=== PATIENT | female | born 1965 | race Caucasian/White ===

== ENCOUNTER 2019-05-28 09:07 | Outpatient (CLI) | payer BC, SELFPAY ==
--- NOTE | ~2019-05-28 | MM_ITS ---
EXAMINATION: MM screening [facility] BI w carolee HISTORY: Screening mammogram TECHNIQUE: Craniocaudal and mediolateral oblique 3-D tomosynthesis images were obtained and synthetic 2-D images were generated. CAD analysis was submitted and interpreted. COMPARISON: 04/03/2018, 02/13/2017, 02/10/2016 BREAST PARENCHYMAL COMPOSITION: The breasts are heterogeneously dense, which may obscure small masses . FINDINGS: There is no evidence of suspicious mass, calcification, or architectural distortion to sugg est malignancy in either breast. There has been no suspicious interval change. IMPRESSION: 1. No mammographic evidence of malignancy. 2. Recommend routine screening mammography in one year. BI-RADS Category 1: Negative Reviewed, dictated and finalized at location A.
== END 2019-05-28 09:08 | disposition home or self-care (01) ==
LOC: ANHIMG 09:14
PROVIDERS: Visit Provider Obstetrics & Gynecology
DX: Z12.31 Encounter for screening mammogram for malignant neoplasm of breast (principal)
CPT/HCPCS: 77063; 77067

== ENCOUNTER 2020-06-12 11:01 | Outpatient (CLI) | payer BC, SELFPAY ==
--- NOTE | ~2020-06-12 | MM_ITS ---
EXAMINATION: MM screening [facility] BI w carolee HISTORY: Screening TECHNIQUE: Craniocaudal and mediolateral oblique 3-D tomosynthesis images were obtained and synthetic 2-D images were generated. CAD analysis was submitted and interpreted. COMPARISON: Comparison to multiple prior studies sequentially, with oldest reviewed study dated 01/13. BREAST PARENCHYMAL COMPOSITION: There are scattered areas of fibroglandular density. FINDINGS: There is no evidence of suspicious mass, calcification, or architectural distortion to sugg est malignancy in either breast. There has been no suspicious interval change. IMPRESSION: 1. No mammographic evidence of malignancy. 2. Recommend routine screening mammography in one year. BI-RADS Category 1: Negative Reviewed, dictated and finalized at location A.
== END 2020-06-12 11:02 | disposition home or self-care (01) ==
LOC: ANHIMG 11:22
PROVIDERS: PCP Internal Medicine; Visit Provider Obstetrics & Gynecology
DX: Z12.31 Encounter for screening mammogram for malignant neoplasm of breast (principal)
CPT/HCPCS: 77063; 77067

== ENCOUNTER 2021-06-20 15:02 | Outpatient (CLI) | payer BC, SELFPAY ==
--- NOTE | ~2021-06-20 | MM_ITS ---
EXAMINATION: MM screening [facility] w carolee HISTORY: Screening TECHNIQUE: Craniocaudal and mediolateral oblique 3-D tomosynthesis images were obtained and synthetic 2-D images were generated. CAD analysis was submitted and interpreted. COMPARISON: Comparison to multiple prior studies sequentially, with oldest reviewed study dated 01/13. BREAST PARENCHYMAL COMPOSITION: Breast composed of scattered areas of fibroglandular density FINDINGS: There is no evidence of suspicious mass, calcification, or architectural distortion to sugg est malignancy in either breast. There has been no suspicious interval change. IMPRESSION: 1. No mammographic evidence of malignancy. 2. Recommend routine screening mammography in one year. BI-RADS Category 1: Negative Reviewed, dictated and finalized at location A.
== END 2021-06-20 15:03 | disposition home or self-care (01) ==
LOC: ANHIMG 15:03
PROVIDERS: PCP Internal Medicine; Visit Provider Obstetrics & Gynecology
DX: Z12.31 Encounter for screening mammogram for malignant neoplasm of breast (principal)
CPT/HCPCS: 77063; 77067

== ENCOUNTER 2022-11-07 16:15 | Outpatient (CLI) | payer BC, SELFPAY ==
--- NOTE | ~2022-11-07 | MM_ITS ---
EXAMINATION: MM screening [facility] BI w carolee HISTORY: Screening mammogram TECHNIQUE: Craniocaudal and mediolateral oblique 3-D tomosynthesis images were obtained and synthetic 2-D images were generated. CAD analysis was submitted and interpreted. COMPARISON: 06/30/2021, 06/12/2020, 05/28/2019 bilateral screening mammogram examinations BREAST PARENCHYMAL COMPOSITION: There are scattered areas of fibroglandular density. FINDINGS: There is no evidence of suspicious mass, calcification, or architectural distortion to sugg est malignancy in either breast. There has been no suspicious interval change. IMPRESSION: 1. No mammographic evidence of malignancy. 2. Recommend routine screening mammography in one year. BI-RADS Category 1: Negative Reviewed, dictated and finalized at location A.
== END 2022-11-07 16:16 | disposition home or self-care (01) ==
PROVIDERS: PCP Internal Medicine; Visit Provider Obstetrics & Gynecology
DX: Z12.31 Encounter for screening mammogram for malignant neoplasm of breast (principal)
CPT/HCPCS: 77063; 77067

== ENCOUNTER 2023-11-21 14:58 | Outpatient (CLI) | payer BC, SELFPAY ==
--- NOTE | ~2023-11-21 | MM_ITS ---
EXAMINATION: MM screening [facility] BI w carolee HISTORY: Screening TECHNIQUE: Craniocaudal and mediolateral oblique 3-D tomosynthesis images were obtained and synthetic 2-D images were generated. CAD analysis was submitted and interpreted. COMPARISON: Comparison to multiple prior studies sequentially, with oldest reviewed study dated 03/2017. BREAST PARENCHYMAL COMPOSITION: Not dense: There are scattered areas of fibroglandular density. FINDINGS: There is a new asymmetry laterally in the left breast on CC view, middle third. The right b reast is stable without evidence for malignancy. IMPRESSION: 1. New left breast asymmetry. 2. Additional mammographic views and possible breast ultrasound are recommended. BI-RADS Category 0: Incomplete: Needs additional imaging evaluation. Reviewed, dictated and finalized at location B. IMPRESSION: 1. New left breast asymmetry. 2. Additional mammographic views and possible breast ultrasound are recommended . BI-RADS Category 0: Incomplete: Needs additional imaging evaluation.
== END 2023-11-21 14:59 | disposition home or self-care (01) ==
LOC: ANHIMG 15:00
PROVIDERS: PCP Internal Medicine; Visit Provider Obstetrics & Gynecology
DX: N64.89 Other specified disorders of breast (principal); Z12.31 Encounter for screening mammogram for malignant neoplasm of breast
CPT/HCPCS: 77063; 77067

== ENCOUNTER 2023-12-12 10:37 | Outpatient (CLI) | payer BC, SELFPAY ==
--- NOTE | ~2023-12-12 | MM_ITS ---
EXAMINATION: MM diagnostic [facility] w carolee HISTORY: Left breast asymmetry TECHNIQUE: Additional 3-D tomosynthesis images of the left breast were performed and synthetic 2-D im ages were generated. CAD analysis was submitted and interpreted. COMPARISON: 11/21/2023, 11/07/2022, 06/20/2021 BREAST PARENCHYMAL COMPOSITION:Not Dense. There are scattered areas of fibroglandular density. FINDINGS: Spot compression views demonstrate effacement of the area of asymmetry. No persistent mass lesion or distortion. No suspicious microcalcifications. IMPRESSION: No mammographic evidence for malignancy. BI-RADS Category 1: Negative Reviewed, dictated and finalized at location .
== END 2023-12-12 10:38 | disposition home or self-care (01) ==
PROVIDERS: PCP Internal Medicine; Visit Provider Obstetrics & Gynecology
DX: R92.8 Other abnormal and inconclusive findings on diagnostic imaging of breast (principal)
CPT/HCPCS: 77061; 77065; G0279

== ENCOUNTER 2024-05-22 11:07 | Outpatient (CLI) | payer BC, SELFPAY ==
--- NOTE | ~2024-05-22 | DEXA_ITS ---
Bone Density Report Name: DIMAS ANDRADE Age: 58 Sex: Female Ethnicity: White Date of : 1965 Indication: postmenopausal; screening for osteoporosis; height loss; hysterectomy; Referring Provider: CAYLA VANESSA Study: Bone densitometry was performed. Exam Date: May 22, 2024 Accession number: [id number] Bone Density: Region BMD T-score Z-score Classification AP Spine(L1-L4) 1.016 -0.3 0.9 Normal Femoral Neck (Left) 0.789 -0.5 0.6 Normal Total Hip (Left) 0.895 -0.4 0.4 Normal Femoral Neck (Right) 0.782 -0.6 0.5 Normal Total Hip (Right) 0.871 -0.6 0.2 Normal Total Hip Mean 0.883 -0.5 0.3 Normal World Health Organization criteria for BMD impression classify patients as: Normal (T-score at or above -1.0), Osteopenia (T-score between -1.0 and -2.5), or Osteoporosis (T-score at or below -2.5). 10-year Fracture Risk: FRAX not reported because: All T-scores for Spine Total, Hip Total, Femoral Neck at or above -1.0 Clinical Information Provided by Patient: Has used the following medications: HRT (i.e. estrogen/hormone therapy) Has the following medical conditions: Hysterectomy Patient maximum height was 66 Menopause Age: 42 Drinks caffeinated beverages Onset of menses at age 14 Number of children 3 Impression: The patient has normal bone mass. Discussion: BONE DENSITY IS ABOVE THE MINIMUM DESIRABLE LEVEL AT ALL SKELETAL SITES TESTED. This patient?s bone mineral density is above the minimum desirable level (T-score -1.0 or better) at all sites measured. The patient should follow a healthful lifestyle (good nutrition with adequate calcium and vitamin D, and appropriate weight-bearing exercise). Follow-Up: Consider repeating this study in 5 years or sooner if there is some new clinical indication. Reported by: COLLEEN on 05/22/2024 12:06:00 PM. Reviewed, dictated and finalized at location AJoseph OLIVERA
--- OUTSIDE RECORDS SUMMARY | 2024-05-22 11:56 | XMS_ITS | Encounter Summary ---
Author Organization [facility] Healthcare Address [address] [place] [address] Care Team Providers Care Final Assembly Inspector Name Role Phone Mercy Rascon MD Primary Care Provider [phone] Encounter Details Date Type Department Care Team (Late st Contact Info) Description 12/12/2023 Orders Only [facility] [place] Health Information Management [address] [place] [id number] Scanning, Provider Social History Tobacco Use Types Packs/Day Years Used Date Smoking Tobacco: Never Smokeless Tobacco: Never Alcohol Use Standard Drinks/Week Comments Yes 0 (1 standard drink = 0.6 oz pur e alcohol) AUDIT-C Answer Date Recorded Q1: How often do you have a drink containing alcohol? Never 11/16/2023 Q2: How many drinks containi ng alcohol do you have on a typical day when you are drinking? Patient does not drink Q3: How often do you have si x or more drinks on one occasion? 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 Gender Identity Not on file Sexual Orientation Not on file documented as of this encounter Plan of Treatment Not on file documented as of this encounter Procedures Procedure Name Priority Date/Time Associated Diagnosis Comments SCAN - RADIOLOGY/IMAGING 12/12/2023 documented in this encounter Results * SCAN - RADIOLOGY/IMAGING (12/12/2023) Anatomical Region Laterality Modality Other us Provider Scanning Final Result documented in this encounter Visit Diagnoses Not on filedocumented in this encounter Care Teams Final Assembly Inspector Relationship Specialty Start Date End Date Mercy Rascon MD [address] [place] [address] [place] [id number] PCP - General Internal Medicine 05/04/18 documented as of this encounter
--- OUTSIDE RECORDS SUMMARY | 2024-05-22 11:56 | XMS_ITS | Clinical Summary ---
Author Organization [facility] Address [address] [place] [address] Care Team Providers Care High School Tutor Name Role Phone Mercy Rascon MD Primary Care Provider [phone] Source Comments [facility],non-owned Affiliates and Associated Physician Practices is amultiple site organization consisting of ambulatory clinics and hospital sitesin [place], [place], [place] and [place]. This disclosure is being madepursuant to the Care Everywhere program and may not contain all information available regarding this patient. Last updated 17.[facility] [employer] Allergies No known active allergies Medications * Be aware that medications may not be up to date on this document. Alwaysverify current medications with the patient. Medication Sig Dispensed Refills Start Date End Date Status estradiol (ESTRACE) 1 MG tablet Take 1 tablet by mouth once daily 07/02/2017 Active bimatoprost (LATISSE) 0.03 % solution Apply 1 drop to affected area once daily 03/17/2015 Active Tretinoin (ALTRENO) 0.05 % lotion Apply to affected area once daily Apply to affected area at bedtime as directed. 3 mos supply 45 g 3 10/28/2019 Active Additional Information Patient not taking.Reported on 10/27/2021 temazepam (RESTORIL) 15 MG capsule Take 15 mg by mouth at bedtime 06/15/2020 Active Multiple Vitamin (MULTI-VITAMIN PO) Take 1 tablet by mouth once daily Active estradiol (ESTRACE) 0.1 MG/GM vaginal cream Insert 0.1 applicators into the vagina as needed 09/25/2020 Active ezetimibe (ZETIA) 10 MG tablet Take 1 tablet by mouth once daily 02/21/2021 Active pravastatin (PRAVACHOL) 40 MG tablet Take 40 mg by mouth once daily 04/27/2021 Active fluocinolone-hydroqu inone-tretinoin (Tri-Ainsley) 0.01-4-0.05 % cream Apply to affected area nightly, for 6 months. For cosmetic use 30 g 2 11/21/2021 Active Active Problems Problem Noted Date Diagnosed Date HLD (hyperlipidemia) 05/25/2015 Overview (06/21/2020): Last Assessment & Plan: Patient has myalgia with low does Crestor. She could not tolerate 20 memory g because it caused her muscle weakness. We will stop Crestor and start her on nexletol 180 mg daily and samples were given and we will repeat her blood work in few months Last Assessment & Plan: Patient has myalgia with low does Crestor. She could not tolerate 20 memory g because it caused her muscle weakness. We will stop Crestor and start her on nexletol 180 mg daily and samples were given and we will repeat her blood work in few months Insomnia 05/25/2015 Overview (06/21/2020): Last Assessment & Plan: Controlled on Restoril Last Assessment & Plan: Controlled on Restoril Immunizations Name Administration Dates Next Due Covid Moderna primary monova lent 12+ yr 0.5mL 05/04/2020,04/06/2020 FLU VACCINE QUAD IIV4 SPLIT 0.25 ML IM 8,12/01/2016,11/29/2015 FLU VACCINE TRI IIV3 SPLIT PF IM (FLUVIRIN) 11/12 INFLUENZA VACCINE 11/12/2020,12/14/2019,12/14/19 19 INFLUENZA VACCINE, CELL CULT URE, QUADR. (FLUCELVAX QUADRIVALENT; 6MO+) (CCIIV4) 11/14/2019 INFLUENZA VACCINE, QUADR. (F LUZONE; FLULAVAL; FLUARIX; AFLURIA QUADRIVALENT; 6MO+), 0.5 ML (IIV4) 01/08/2019 MMR 08/04/2018,08/02/2018 TDAP (7yrs+) 01/08/2019 Zoster Hzv Vacc Recombinant Inj Im 01/23/2020, Family History Medical History Relation Name Comments Cancer - Skin, Melanoma Neg Hx Cancer - Skin, Non Melanoma Neg Hx Social History Tobacco Use Types Packs/Day Years Used Date Smoking Tobacco: Never Smokeless Tobacco: Never Alcohol Use Standard Drinks/Week Comments Yes 0 (1 standard drink = 0.6 oz pur e alcohol) rarely Sex and Gender Information Value Date Recorded Sex Assigned at Not on file Gender Identity Not on file Sexual Orientation Not on file Plan of Treatment Health Maintenance Due Date Last Done Comments COLOGUARD (AGES 45-75) - COLON CA SCREENING [address] COLONOGRAPHY - COLON CA SCREENING 1967 FIT - COLON CA SCREENING 1967 FLEX SIG - COLON CA SCREENING 1967 MAMMOGRAM 1967 PAP SMEAR 1967 HIV SCREENING 06/22/1982 HEPATITIS C SCREENING 06/18/1985 HEPATITIS B VACCINE (1 of 3 - 19+ 3-dose series) 06/22/1986 PNEUMOCOCCAL VACCINE 50+ (1 of 1 - PCV) 06/22/2017 COVID-19 VACCINE (3 - 2023- season) 2023 05/04/2020, 04/06/2020 DEPRESSION SCREENING 02/13/2024 INFLUENZA VACCINE (Season Ended) 2024 11/12/2020, 12/14/2019, 11/14/2019, Additional history exists COLONOSCOPY - COLON CA SCREENING 01/19/2028 01/18/2018 Colorectal Cancer Screening 01/19/2028 DTAP/TDAP/TD VACCINES (2 - Td or Tdap) 01/08/2029 01/08/2019 ZOSTER VACCINE Completed 01/23/2020, 11/14/2019 HIB VACCINE Aged Out No longer eligi ble based on patient's age to complete this topic HPV VACCINE Aged Out No longer eligi ble based on patient's age to complete this topic MENINGOCOCCAL (Group B) VACCINE SHARED DECISION-MAKING Aged Out No longer eligible based on patient's age to complete this topic MENINGOCOCCAL GROUPS A/C/Y/W VACCINE Aged Out No longer eligible based on patient's age to complete this topic PNEUMOCOCCAL VACCINE Aged Out No long er eligible based on patient's age to complete this topic Care Teams High School Tutor Relationship Specialty Start Date End Date Mercy Rascon MD [address] [facility] [address] [phone] PCP - General 05/13/18
--- OUTSIDE RECORDS SUMMARY | 2024-05-22 11:56 | XMS_ITS | Encounter Summary ---
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 Gender Identity Not on file Sexual Orientation Not on file documented as of this encounter Plan of Treatment Not on file documented as of this encounter Procedures Procedure Name Priority Date/Time Associated Diagnosis Comments SCAN - RADIOLOGY/IMAGING 11/21/2023 documented in this encounter Results * SCAN - RADIOLOGY/IMAGING (11/21/2023) Anatomical Region Laterality Modality Other us Provider Scanning Final Result documented in this encounter Visit Diagnoses Not on filedocumented in this encounter Care Teams Compliance Tester Relationship Specialty Start Date End Date Mercy Rascon MD [address] [place] [address] [place] [id number] PCP - General Internal Medicine 05/04/18 documented as of this encounter
--- OUTSIDE RECORDS SUMMARY | 2024-05-22 11:56 | XMS_ITS | Encounter Summary ---
Author Organization [facility] Facility Care Team Providers Care Steward/Stewardess Deck Name Role Phone Mercy Rascon MD Primary Care Provider [phone] Encounter Details Date Type Department Care Team (Latest Contact Info) Description 01/22/2018 Orders Only [facility] Provider, MD Malou [address] [place] [phone] Social History Tobacco Use Types Packs/Day Years Used Date Smoking Tobacco: Never Assessed Comments Unknown Sex and Gender Information Value Date Recorded Sex Assigned at Not on file Legal Sex Female 5:50 PM ESTATE TAX EXAMINER Gender Identity Not on file Sexual Orientation Not on file documented as of this encounter Plan of Treatment Not on file documented as of this encounter Procedures Procedure Name Priority Date/Time Associated Diagnosis Comments COLONOSCOPY - SCAN 01/22/2018 12 :00 AM ESTATE TAX EXAMINER documented in this encounter Results * COLONOSCOPY - SCAN (01/22/2018 12:00 AM ESTATE TAX EXAMINER) Narrative 01/22/2018 12:00 AM ESTATE TAX EXAMINER Ordered by an unspecified provider. Historical Provider Final Res ult documented in this encounter Visit Diagnoses Not on filedocumented in this encounter Additional Health Concerns Infection Onset Date Last Indicated Resolved Time COVID: Suspected 02/17/2020 02/17/2020 03/02/2020 3:07 AM ESTATE TAX EXAMINER documented as of this encounter Care Teams Steward/Stewardess Deck Relationship Specialty Start Date End Date Mercy Rascon MD [address] [place] [address] PCP - General Internal Medicine 05/04/18 documented as of this encounter
--- OUTSIDE RECORDS SUMMARY | 2024-05-22 11:56 | XMS_ITS | Encounter Summary ---
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 Historical Provider Final Res ult documented in this encounter Visit Diagnoses Not on filedocumented in this encounter Additional Health Concerns Infection Onset Date Last Indicated Resolved Time COVID: Suspected 02/17/2020 02/17/2020 03/02/2020 3:07 AM WOOD HEEL FITTER MACHINE documented as of this encounter Care Teams Seasonal Greenery Bundler Relationship Specialty Start Date End Date Mercy Rascon MD [address] [place] [id number] PCP - General Internal Medicine 05/04/18 documented as of this encounter
--- OUTSIDE RECORDS SUMMARY | 2024-05-22 11:56 | XMS_ITS | Clinical Summary ---
Author Organization [facility] Address [address] [place] [address] Care Team Providers Care Construction Lineman Name Role Phone Mercy Rascon MD Primary Care Provider [phone] Allergies Active Allergy Reactions Criticality Noted Date Comments Atorvastatin Muscle pain Medium 07/05/2018 myalgia Medications estradiol (ESTRACE) 1 mg tablet Take 1 tablet (1 mg total) by mouth Take 1 tablet by mouth once daily 07/03/19 18 Active vitamin A 10,000 unit capsule 1 capsule (10,000 Units total) daily Active biotin 10 mg tablet 1 tablet (10 mg total) daily Biotin 10 MG Tablet, TAKE: 1 tablet, Once a day Active calcium carbonate/miriam min D3 (CALCIUM 500 + D ORAL) Rx: Calcium , TAKE: 1 tab Active estradioL (ESTRACE) 0.01 % (0.1 mg/gram) vaginal cream 02/21/19 23 Active bimatoprost (LATISSE) 0.03 % ophthalmic solution APPLY TO EACH EYELASH EVERY NIGHT AT BEDTIME 11/07/19 24 Active ezetimibe (ZETIA) 10 mg tablet TAKE ONE TABLET BY MOUTH EVERY DAY 90 tablet 1 03/06/19 25 Active pravastatin (PRAVACHOL) 40 mg tablet TAKE ONE TABLET BY MOUTH EVERY DAY 90 tablet 1 03/06/19 25 Active temazepam (RESTORIL) 15 mg capsuleIndicat ions:Primary insomnia TAKE 1 CAPSULE BY MOUTH TWICE DAILY NEEDED 60 capsule 2 05/15/19 25 Active bempedoic acid (Nexletol) 180 mg tablet Take 180 mg by mouth daily 90 tablet 3 05/17/19 25 Active bempedoic acid (Nexletol) 180 mg tablet Take 180 mg by mouth daily 30 tablet 5 05/17/19 25 Active pimecrolimus (ELIDEL) 1 % cream Apply to affected area on face 2 times daily. 30 05/14/19 19 025 Discontinued(Th erapy completed) bempedoic acid (Nexletol) 180 mg tablet Take 180 mg by mouth daily 30 tablet 5 02/11/20 20 025 Discontinued(Re order) temazepam (RESTORIL) 15 mg capsuleIndicat ions:Primary insomnia TAKE 1 CAPSULE BY MOUTH TWICE DAILY NEEDED 60 capsule 3 01/15/20 24 025 Discontinued Active Problems Problem Noted Date Diagnosed Date Myalgia 05/16/2024 Assessment & Plan (05/16/2024 12:12 PM CDT): Patient with muscle ache and slight weakness in the lower extremities secondary to pravastatin which makes it difficult for her to ambulate and exercise on regular basis. We will stop pravastatin and try Nexletol. Common cold 11/16/2023 Assessment & Plan (11/16/2023 11:43 AM CDT): Patient with coughing and sore throat. Exam is normal. Most likely it is viral. She will take hbjr-jsl-gzlsfab cough medications as needed and she will call for worsening symptoms Onychomycosis 09/29/2021 Assessment & Plan (04/04/2023 7:52 AM MAILER APPRENTICE): Resolved Assessment & Plan (04/03/2022 12:41 PM MAILER APPRENTICE): Resolved Assessment & Plan (09/29/2021 5:07 PM CDT): Patient with fungus infection of both great toenails. She will be started on Lamisil 250 mg daily for 4-6 months. Mixed hyperlipidemia 05/25/2015 Assessment & Plan (05/16/2024 12:11 PM CDT): LDL is 130. The patient complains of muscle ache with pravastatin and she likes to try a different medication. We will start her on Nexletol 180 mg daily and continue Zetia 10 mg daily. She exercises on regular basis and she watches her diet very closely Assessment & Plan (11/16/2023 7:50 AM CDT): Controlled on current medications. Continue low-fat diet. Will continue to monitor . Assessment & Plan (04/04/2023 7:52 AM MAILER APPRENTICE): Controlled on current medications. Continue low-fat diet. Will continue to monitor . Assessment & Plan (10/02/2022 12:13 PM CDT): Controlled on current medications. Continue low-fat diet. Will continue to monitor . Assessment & Plan (04/03/2022 7:52 AM MAILER APPRENTICE): Controlled on current medications. Continue low-fat diet. Will continue to monitor . Assessment & Plan (09/29/2021 5:06 PM CDT): Controlled on current medications. Continue low-fat diet. Will continue to monitor . Assessment & Plan (02/18/2021 11:44 AM MAILER APPRENTICE): Continue current medications and she was advised to had fish oil 1 g daily Assessment & Plan (08/05/2020 11:52 AM CDT): Lipid profile is not controlled. She watches her diet and exercises on a daily basis. Will stop please call and try pravastatin 40 mg q.h.s. and add Zetia 10 mg daily. The patient will call if she developed muscle ache or weakness. Will repeat the blood work in few months. Assessment & Plan (01/29/2020 4:31 PM MAILER APPRENTICE): Patient has myalgia with low does Crestor. She could not tolerate 20 memory g because it caused her muscle weakness. We will stop Crestor and start her on nexletol 180 mg daily and samples were given and we will repeat her blood work in few months Assessment & Plan (07/30/2019 4:04 PM CDT): The patient has persistent hyperlipidemia. She watches her diet very closely and she exercises on regular basis. Crestor gives her muscle ache. We will stop Crestor and try Livalo 2 mg q.h.s.. She will continue with diet and exercise and will repeat the blood work in few months Assessment & Plan (01/08/2019 11:46 AM MAILER APPRENTICE): Controlled on current medications. Continue low-fat diet. Will continue to monitor . Assessment & Plan (07/05/2018 10:28 AM CDT): Controlled on current medications. Continue low-fat diet. Will continue to monitor . Primary insomnia 05/25/2015 Assessment & Plan (05/16/2024 12:11 PM CDT): Controlled on temazepam Assessment & Plan (11/16/2023 7:50 AM CDT): Controlled on temazepam Assessment & Plan (04/04/2023 7:52 AM MAILER APPRENTICE): Controlled on temazepam Assessment & Plan (10/02/2022 12:14 PM CDT): Controlled on temazepam Assessment & Plan (04/03/2022 7:52 AM MAILER APPRENTICE): Controlled on temazepam Assessment & Plan (09/29/2021 5:06 PM CDT): Controlled on temazepam Assessment & Plan (02/18/2021 11:44 AM MAILER APPRENTICE): Controlled on temazepam Assessment & Plan (08/05/2020 11:52 AM CDT): Controlled on temazepam Assessment & Plan (01/29/2020 2:41 PM MAILER APPRENTICE): Controlled on Restoril Assessment & Plan (07/30/2019 4:04 PM CDT): Controlled on temazepam Assessment & Plan (01/08/2019 11:46 AM MAILER APPRENTICE): Controlled on temazepam p.r.n. Assessment & Plan (07/05/2018 10:29 AM CDT): Controlled on Restoril Encounters Date Type Department Care Team Description 05/16/2024 11:15 AM CDT Office Visit [facility] Internal Medicine [address] [place] [phone] Mercy Rascon MD Mixed hyperlipidemia (Primary Dx); Primary insomnia; Adult BMI <19 kg/sq m; Myalgia from Last 3 Months Immunizations Immunization Administration Dates Next Due Influenza, Quadrivalent, Mira l Culture-based MDCK, Preservative Free, Antibiotic Free, Intramuscular 11/03/2022,11/19/2021,11/14/2019 Influenza, Quadrivalent, Spl it, Intramuscular 11/23/2017,12/01/2016,11/29/2015 Influenza, Quadrivalent, Spl it, Preservative Free, Intramuscular 01/08/2019 Influenza, Trivalent, Cell C ulture-based MDCK, Preservative Free, Antibiotic Free, Intramuscular 11/03/2023 Influenza, Trivalent, Preser vative Free, Intramuscular 11/26/2014 Influenza, Unspecified 11/12/2020,12/14/2019,02/2018 MMR 08/04/2018,08/02/2018 Moderna SARS-CoV-2 Monovalen t Vaccination (12+ YRS) 05/04/2020,04/06/2020 Tdap 01/08/2019 ZOSTER Recombinant 01/23/2020,11/14/2019 Surgical History Surgery Date Site/Laterality Comments MASS EXCISION LFT SMALL FINGER MASS Medical History Medical History Date Comments HLD (hyperlipidemia) Insomnia Family History Medical History Relation Name Comments Diabetes Father Relation Name Status Comments Father Alive Mother Alive Social History Tobacco Use Types Packs/Day Years Used Date Smoking Tobacco: Never Smokeless Tobacco: Never Alcohol Use Standard Drinks/Week Comments Yes 0 (1 standard drink = 0.6 oz pur e alcohol) AUDIT-C Answer Date Recorded Q1: How often do you have a drink containing alcohol? Never 05/16/2024 Q2: How many drinks containi ng alcohol do you have on a typical day when you are drinking? Patient does not drink Q3: How often do you have si x or more drinks on one occasion? Never 05/16/2024 PHQ-2 Answer Date Recorded PHQ-2 Total Score (If total score is 3 or more points, staff should administer the PHQ-9) 0 11/16/2023 Comments Unknown Sex and Gender Information Value Date Recorded Sex Assigned at Not on file Legal Sex Female 5:50 PM MAILER APPRENTICE Gender Identity Not on file Sexual Orientation Not on file Obstetrics History Last Filed Vital Signs Vital Sign Reading Time Taken Comments Blood Pressure 112/70 05/16/2024 11:16 AM CDT Pulse 70 05/16/2024 11:16 AM CDT Temperature 36.6 C (97.9 F) 05/16/2024 11:16 AM CDT Respiratory Rate 18 05/16/2024 11:16 AM CDT Oxygen Saturation 99% 05/16/2024 11:16 AM CDT Inhaled Oxygen Concentration - - Weight 55.8 kg (123 lb) 05/16/2024 11:16 AM CDT Height 167.6 cm (5' 6 ) 05/16/2024 11:16 AM CDT Body Mass Index 19.85 05/16/2024 11:16 AM CDT Plan of Treatment Health Maintenance Due Date Last Done Comments Hepatitis B Screening 06/22/1985 Regular Well Visit/Exam 18-64 06/22/1985 Cervical Cancer Screening 04/07/2020 04/07/2019 Breast Cancer Screening-Mammogram 06/20/2022 06/20/2021, 06/12/2020, 02/12/2018, Additional history exists Colon Cancer Screening-Colonoscopy 01/18/2023 01/18/2018 Depression Screening 11/15/2024 11/16/2023, 04/04/2023, 10/02/2022, Additional history exists DTaP/Tdap/Td Vaccine (2 - Td or Tdap) 01/08/2029 01/08/2019 Colon Cancer Screening-CT Colonography Discontinued 01/18/2018 Colon Cancer Screening-DNA Stool Discontinued 01/18/2018 Colon Cancer Screening-FIT Discontinued 01/18/2018 Colon Cancer Screening-Sigmoidoscopy Discontinued 01/18/2018 Zoster Vaccine Completed 01/23/2020, 11/14/2019 Covid-19 Vaccine Completed 11/03/2023, , 11/19/2021, Additional history exists Influenza Vaccine Completed 11/03/2023, , 11/19/2021, Additional history exists Hepatitis C Screening Completed 05/09/2024 Pneumococcal vaccine <65 Aged Out No longer eligible based on patient's age to complete this topic Procedures Procedure Name Priority Date/Time Associated Diagnosis Comments CBC WITH AUTO DIFFERENTIAL Routine 05/09/2024 9:10 AM CDT Mixed hyperlipidemia COMPREHENSIVE METABOLIC PANEL Routine 05/09/2024 9:10 AM CDT Mixed hyperlipidemia LIPID PANEL Routine 05/09/2024 9:10 AM CDT Mixed hyperlipidemia HEPATITIS C ANTIBODY Routine 05/09/2024 9:10 AM CDT SCREENING MAMMOGRAM Schedule Routine, Read Routine (OP Routine) 06/20/2021 GENITAL FLUID PAP SMEAR, THIN PREP AND HPV Routine 04/07/2019 COLONOSCOPY Routine 01/18/2018 from Last 3 Months or Most Recently Relevant to Health Maintenance Results * CBC with auto differential (05/09/2024 9:10 AM CDT) WBC 4.3 3.8 - 10.8 Thousand/u L [facility] RBC, POC 4.22 3.80 - 5.10 Million/uL [facility] Hgb 13.8 11.7 - 15.5 g/dL [facility] Hct 41.5 35.0 - 45.0 % [facility] MCV 98.3 80.0 - 100.0 fL [facility] MCH 32.7 27.0 - 33.0 pg [facility] MCHC 33.3 32.0 - 36.0 g/dL [facility] Comment: For adults, a slight decrease in the calculated MCHC value (in the range of 30 to 32 g/dL) is most likely not clinically significant; however, it should be interpreted with caution in correlation with other red cell parameters and the patient's clinical condition. Rdw 11.6 11.0 - 15.0 % [facility] Platelets 218 140 - 400 Thousand/u L [facility] MPV 9.8 7.5 - 12.5 fL [facility] Neutrophils, abs 1,875 1,500 - 7,800 cells/uL [facility] Lymphocytes, abs 1,866 850 - 3,900 cells/uL [facility] Monocyte abs 430 200 - 950 cells/uL [facility] Eosinophils, abs 90 15 - 500 cells/uL [facility] Basophils, abs 39 0 - 200 cells/uL [facility] Neutrophils 43.6 % [facility] Lymphocyte pct 43.4 % [facility] Monocytes 10.0 % [facility] Eosinophils 2.1 % [facility] Basophils 0.9 % [facility] Blood 05/09/2024 9:10 AM CDT 05/09/2024 9:11 AM CDT Narrative [facility] - 05/10/2024 5:41 AM CDT FASTING:YES FASTING: YES Mercy Rascon MD LAB BLOOD ORDERABLES Final Result [facility] [address] [place] [address] * Hepatitis C antibody (05/09/2024 9:10 AM CDT) Hep C Ab NON-REACTI VE NON-REACT VERONIKA [facility] Comment: HCV antibody was non-reactive. There is no laboratory evidence of HCV infection. In most cases, no further action is required. However, if recent HCV exposure is suspected, a test for HCV RNA (test code 29564) is suggested. For additional information please refer to http://education.[employer]/faq/SIS45d3 (This link is being provided for informational/ educational purposes only.) 05/09/2024 9:10 AM CDT 05/09/2024 9:11 AM CDT Narrative [facility] - 05/10/2024 5:41 AM CDT FASTING:YES FASTING: YES Mercy Rascon MD LAB MICROBIOLOGY - GENERAL ORDERABLES Final Result Performing Organization Address City/[facility]/ZIP Co de Phone Number [facility] [address] [phone] * (ABNORMAL) Lipid panel (05/09/2024 9:10 AM CDT) [facility] Cholesterol 220(H) <200 mg/dL [facility] HDL 72 > OR = 50 mg/dL [facility] Triglycerides 79 <150 mg/dL [facility] LDL 130(H) mg/dL (calc) [facility] Comment: Reference range: <100 Desirable range <100 mg/dL for primary prevention; <70 mg/dL for patients with CHD or diabetic patients with > or = 2 CHD risk factors. LDL-C is now calculated using the Antione-Severino calculation, which is a validated novel method providing better accuracy than the Friedewald equation in the estimation of LDL-C. Antione SS et al. PAULA. 2013;310(19): 3274-0268 (http://education.[employer]/faq/MFY209) Chol/HDL ratio 3.1 <5.0 (calc) [facility] Non-HDL, (LDL+VLDL) 148(H) <130 mg/dL (calc) [facility] Comment: For patients with diabetes plus 1 major ASCVD risk factor, treating to a non-HDL-C goal of <100 mg/dL (LDL-C of <70 mg/dL) is considered a therapeutic option. Blood 05/09/2024 9:10 AM CDT 05/09/2024 9:11 AM CDT Narrative [facility] - 05/10/2024 5:41 AM CDT FASTING:YES FASTING: YES Mercy Rascon MD LAB BLOOD ORDERABLES Final Result [facility] [address] [place] [phone] * Comprehensive metabolic panel (05/09/2024 9:10 AM CDT) Glucose 89 65 - 99 mg/dL [facility] Comment: Fasting reference interval BUN 17 7 - 25 mg/dL [facility] Creatinine 0.69 0.50 - 1.03 mg/dL [facility] eGFR 102 > OR = 60 mL/min/1.7 3m2 [facility] BUN/creat ratio SEE NOTE: 6 - 22 (calc) [facility] Comment: Not Reported: BUN and Creatinine are within reference range. Sodium 139 135 - 146 mmol/L [facility] Potassium, pl 4.2 3.5 - 5.3 mmol/L [facility] Chloride 104 98 - 110 mmol/L [facility] CO2 27 20 - 32 mmol/L [facility] Calcium 9.3 8.6 - 10.4 mg/dL [facility] Protein, sr 7.2 6.1 - 8.1 g/dL [facility] Albumin 4.6 3.6 - 5.1 g/dL [facility] GLOBULIN 2.6 1.9 - 3.7 g/dL (calc) [facility] Alb/glob ratio 1.8 1.0 - 2.5 (calc) [facility] Bilirubin, total 0.6 0.2 - 1.2 mg/dL [facility] Alk phos 58 37 - 153 U/L [facility] AST 25 10 - 35 U/L [facility] ALT (SGPT) 14 6 - 29 U/L [facility] Blood 05/09/2024 9:10 AM CDT 05/09/2024 9:11 AM CDT Narrative [facility] - 05/10/2024 5:41 AM CDT FASTING:YES FASTING: YES us Mercy Rascon MD LAB BLOOD ORDERABLES Final Result [facility] [address] [phone] * Screening Mammogram (06/20/2021) Anatomical Region Laterality Modality Breast N/A Mammography Narrative 06/20/2021 Repeat in one year, No mammographic evidence of malignancy Historical Provider IMG MAMMO PROCEDURES Kaelyn l Result * Genital fluid pap smear, thin prep and HPV (04/07/2019) 04/07/2019 Historical Provider LAB CYTOLOGY ORDERABLES F inal Result * Colonoscopy (01/18/2018) Anatomical Region Laterality Modality Other Historical Provider ENDOSCOPY PROCEDURES Kaelyn l Result from Last 3 Months or Most Recently Relevant to Health Maintenance Insurance [employer] [place] [address] FORMERLY [facility] ACCESS CHOICE Care Teams Construction Lineman Relationship Specialty Start Date End Date Mercy Rascon MD [address] [facility] [address] [address] PCP - General Internal Medicine 05/04/18
--- OUTSIDE RECORDS SUMMARY | 2024-05-22 11:56 | XMS_ITS | Continuity of Care Document ---
Author Organization [facility] Address [address] [facility] [address] [facility] [address] [place] [address] Phone Care Team Providers Care Auto Driver Name Role Phone Vitale OD, Humberto Unavailable Unavailable Advance Directives Directive Yes / No Effective Date File Name No Information Encounters Encounter Description Practice Location Reason(s) For Visit Diagnoses Date Provider Providers Copied on Encounter [facility], [address], [place], [place], [id number], [place] tel:[phone] [facility] No Information 8-200 5 Vitale OD Humberto. [address] , [address], [place], [address], [place]. tel:[phone] Family History Family Member Type Diagnosis Age At Onset No Information Payers Payer name Insurance type Covered republican ID Authoriza tion(s) No Information Social History Type Description Quantity Date Captured Comments Sex Female Smoking Status No Information Chief Complaint And Reason For Visit No Information Reason For Referral Reason For Referral No Information History Of Present Illness Encounter Date Complaint History Of Prese nt Illness No Information Functional Status Date Functional Assessmen t No Information Instructions Date Instruction Additional Infor mation No Information Assessments Type Assessment Date No Information Patient Care Teams Name Effective Dates (start - stop) Status Members No Information
--- OUTSIDE RECORDS SUMMARY | 2024-05-22 11:56 | XMS_ITS | Encounter Summary ---
Author Organization [facility] Care Team Providers Care Kitchen Porter Name Role Phone Mercy Rascon MD Primary Care Provider [phone] Encounter Details Date Type Department Care Team (Latest Contact Info) Description 12/26/2016 Orders Only [facility] CLINCONV ProviderMalou MD [address] [place] [id number] Social History Tobacco Use Types Packs/Day Years Used Date Smoking Tobacco: Never Assessed Comments Unknown Sex and Gender Information Value Date Recorded Sex Assigned at Not on file Legal Sex Female 5:50 PM WIRE LATHER Gender Identity Not on file Sexual Orientation Not on file documented as of this encounter Plan of Treatment Not on file documented as of this encounter Procedures Procedure Name Priority Date/Time Associated Diagnosis Comments PROCEDURE - RESULT 12/26/2016 12 :00 AM WIRE LATHER SCAN - PATHOLOGY 12/26/2016 12:0 0 AM WIRE LATHER documented in this encounter Results * PROCEDURE - RESULT (12/26/2016 12:00 AM WIRE LATHER) Narrative 12/26/2016 12:00 AM WIRE LATHER Ordered by an unspecified provider. Historical Provider Final Res ult * SCAN - PATHOLOGY (12/26/2016 12:00 AM WIRE LATHER) Narrative 12/26/2016 12:00 AM WIRE LATHER Ordered by an unspecified provider. Historical Provider Final Res ult documented in this encounter Visit Diagnoses Not on filedocumented in this encounter Additional Health Concerns Infection Onset Date Last Indicated Resolved Time COVID: Suspected 02/17/2020 02/17/2020 03/02/2020 3:07 AM WIRE LATHER documented as of this encounter Care Teams Kitchen Porter Relationship Specialty Start Date End Date Mercy Rascon MD [address] [facility] [address] [place] [address] [place] [id number] PCP - General Internal Medicine 05/04/18 documented as of this encounter
--- OUTSIDE RECORDS SUMMARY | 2024-05-22 11:56 | XMS_ITS | Referral Summary ---
Author Organization [facility] Address [address] [place] [address] Care Team Providers Care Automatic Developer Name Role Phone Mercy Rascon MD Primary Care Provider [phone] Encounters Date Type Department Care Team Description 05/16/2024 11:15 AM CDT Office Visit [facility] Internal Medicine [address] [place] [address] Mercy Rascon MD Mixed hyperlipidemia (Primary Dx); Primary insomnia; Adult BMI <19 kg/sq m; Myalgia from Last 3 Months Allergies Active Allergy Reactions Criticality Noted Date [...] likely it is viral. She will take ubzp-gec-ecvmjor cough medications as needed and she will call for worsening symptoms Onychomycosis 09/29/2021 Assessment & Plan (04/04/2023 7:52 AM SAP PLANT MAINTENANCE CONSULTANT): Resolved Assessment & Plan (04/03/2022 12:41 PM SAP PLANT MAINTENANCE CONSULTANT): Resolved Assessment & Plan (09/29/2021 5:07 PM [...] . Assessment & Plan (04/04/2023 7:52 AM SAP PLANT MAINTENANCE CONSULTANT): Controlled on current medications. Continue low-fat diet. Will continue to monitor . Assessment & Plan (10/02/2022 12:13 PM CDT): Controlled on current medications. Continue low-fat diet. Will continue to monitor . Assessment & Plan (04/03/2022 7:52 AM SAP PLANT MAINTENANCE CONSULTANT): Controlled on current medications. Continue low-fat diet. Will continue to monitor . Assessment & Plan (09/29/2021 5:06 PM CDT): Controlled on current medications. Continue low-fat diet. Will continue to monitor . Assessment & Plan (02/18/2021 11:44 AM SAP PLANT MAINTENANCE CONSULTANT): Continue current medications and she was advised [...] months. Assessment & Plan (01/29/2020 4:31 PM SAP PLANT MAINTENANCE CONSULTANT): Patient has myalgia with low does Crestor. [...] months Assessment & Plan (01/08/2019 11:46 AM SAP PLANT MAINTENANCE CONSULTANT): Controlled on current medications. Continue low-fat diet. Will continue to monitor . Assessment & Plan (07/05/2018 10:28 AM CDT): Controlled on current medications. Continue low-fat diet. Will continue to monitor . Primary insomnia 05/25/2015 Assessment & Plan (05/16/2024 12:11 PM CDT): Controlled on temazepam Assessment & Plan (11/16/2023 7:50 AM CDT): Controlled on temazepam Assessment & Plan (04/04/2023 7:52 AM SAP PLANT MAINTENANCE CONSULTANT): Controlled on temazepam Assessment & Plan (10/02/2022 12:14 PM CDT): Controlled on temazepam Assessment & Plan (04/03/2022 7:52 AM SAP PLANT MAINTENANCE CONSULTANT): Controlled on temazepam Assessment & Plan (09/29/2021 5:06 PM CDT): Controlled on temazepam Assessment & Plan (02/18/2021 11:44 AM SAP PLANT MAINTENANCE CONSULTANT): Controlled on temazepam Assessment & Plan (08/05/2020 11:52 AM CDT): Controlled on temazepam Assessment & Plan (01/29/2020 2:41 PM SAP PLANT MAINTENANCE CONSULTANT): Controlled on Restoril Assessment & Plan (07/30/2019 4:04 PM CDT): Controlled on temazepam Assessment & Plan (01/08/2019 11:46 AM SAP PLANT MAINTENANCE CONSULTANT): Controlled on temazepam p.r.n. Assessment & Plan (07/05/2018 10:29 AM CDT): Controlled on Restoril Immunizations Immunization Administration Dates Next Due Influenza, Quadrivalent, Mria l Culture-based MDCK, Preservative Free, Antibiotic Free, Intramuscular 11/03/2022,11/19/2021,11/14/2019 Influenza, Quadrivalent, Spl it, Intramuscular 11/23/2017,12/01/2016,11/29/2015 Influenza, Quadrivalent, Spl it, Preservative Free, Intramuscular 01/08/2019 Influenza, Trivalent, Cell C ulture-based MDCK, Preservative Free, Antibiotic Free, Intramuscular 11/03/2023 Influenza, Trivalent, Preser vative Free, Intramuscular 11/26/2014 Influenza, Unspecified 11/12/2020,12/14/2019,02/2018 MMR 08/04/2018,08/02/2018 Moderna SARS-CoV-2 Monovalen t Vaccination (12+ YRS) 05/04/2020,04/06/2020 Tdap 01/08/2019 ZOSTER Recombinant 01/23/2020,11/14/2019 Social History Tobacco Use Types Packs/Day Years [...] on file Legal Sex Female 5:50 PM SAP PLANT MAINTENANCE CONSULTANT Gender Identity Not on file Sexual Orientation Not on file Last Filed Vital Signs Vital Sign Reading [...] 05/16/2024 11:16 AM CDT Plan of Treatment Not on file Procedures Procedure Name Priority Date/Time Associated Diagnosis [...] LAB BLOOD ORDERABLES Final Result [facility] [address] [place] [address] * Hepatitis C antibody (05/09/2024 9:10 AM CDT) Hep C Ab NON-REACTI VE NON-REACT VERONIKA [facility] Comment: HCV antibody was non-reactive. There is no laboratory evidence of HCV infection. In most cases, no further action is required. However, if recent HCV exposure is suspected, a test for HCV RNA (test code 98780) is suggested. For additional information please refer to http://Ellie.NuAx/faq/PLS21x7 (This link is being provided for informational/ educational purposes only.) 05/09/2024 9:10 AM CDT 05/09/2024 9:11 AM CDT Narrative [facility] - 05/10/2024 5:41 AM CDT FASTING:YES FASTING: YES Mercy Rascon MD LAB MICROBIOLOGY - GENERAL ORDERABLES Final Result Performing Organization Address City/State/[facility] Co de Phone Number [facility] [address] [place] [address] * (ABNORMAL) Lipid panel (05/09/2024 9:10 AM CDT) Pathologist [facility] Cholesterol 220(H) <200 mg/dL [facility] [...] factors. LDL-C is now calculated using the Antione-Mere calculation, which is a validated novel method providing better accuracy than the Friedewald equation in the estimation of LDL-C. Antione ELLIOTT et al. PAULA. 2013;310(19): 7670-4285 (http://education.Pure Nootropics/faq/MXY489) Chol/HDL ratio 3.1 <5.0 (calc) [facility] [...] LAB BLOOD ORDERABLES Final Result [facility] [address] [place] [address] * Comprehensive metabolic panel (05/09/2024 9:10 AM [...] LAB BLOOD ORDERABLES Final Result [facility] [address] [place] [address] * Screening Mammogram (06/20/2021) Anatomical Region Laterality [...] Most Recently Relevant to Health Maintenance [place] [address] [facility] ACCESS CHOICE Care Teams Automatic Developer Relationship Specialty Start Date End Date Mercy Rascon MD [facility] [place] [address] PCP - General Internal Medicine 05/04/18
== END 2024-05-22 11:08 | disposition home or self-care (01) ==
PROVIDERS: PCP Internal Medicine; Visit Provider Obstetrics & Gynecology
DX: M85.80 Other specified disorders of bone density and structure, unspecified site (principal)
CPT/HCPCS: 77080

== ENCOUNTER 2024-12-26 07:30 | Outpatient (CLI) | payer BC, SELFPAY ==
--- NOTE | ~2024-12-26 | MM_ITS ---
EXAMINATION: MM screening [facility] BI w carolee HISTORY: Screening TECHNIQUE: Craniocaudal and mediolateral oblique 3-D tomosynthesis images were obtained and synthetic 2-D images were generated. CAD analysis was submitted and interpreted. COMPARISON: Comparison to multiple prior studies sequentially, with oldest reviewed study dated 05/28/2019. BREAST PARENCHYMAL COMPOSITION: There are scattered areas of fibroglandular density. FINDINGS: There is no evidence of suspicious mass, calcification, or architectural distortion to suggest malignancy in either breast. There has been no suspicious interval change. IMPRESSION: 1. No mammographic evidence of malignancy. 2. Recommend routine screening mammography in one year. BI-RADS Category 1: Negative Reviewed, dictated and finalized at location B. AULIC DREDGE OPERATOR
--- OUTSIDE RECORDS SUMMARY | 2024-12-26 07:33 | XMS_ITS | Clinical Summary ---
Author Organization [facility] Address [address] [place] [address] Care Team Providers Care Lean Manager Name Role Phone Mercy Rascon MD Primary Care Provider [phone] Source Comments [facility],non-owned Affiliates and Associated Physician Practices is amultiple site organization consisting of ambulatory clinics and hospital sitesin [place], [place], [place] and [place]. This disclosure is being madepursuant to the Care Everywhere program and may not contain all information available regarding this patient. Last updated 17.[facility] [employer] Allergies No known active allergies Medications * Be aware that medications may not be up to date on this document. Alwaysverify current medications with the patient. estradiol (ESTRACE) 1 MG tablet Take 1 tablet by mouth once daily 8 Active bimatoprost (LATISSE) 0.03 % solution Apply 1 drop to affected area once daily 6 Active Tretinoin (ALTRENO) 0.05 % lotion Apply to affected area once daily Apply to affected area at bedtime as directed. 3 mos supply 45 g 3 0 Active Additional Information Patient not taking.Reported on 10/27/2021 temazepam (RESTORIL) 15 MG capsule Take 15 mg by mouth at bedtime 1 Active Multiple Vitamin (MULTI-VITAMIN PO) Take 1 tablet by mouth once daily Active estradiol (ESTRACE) 0.1 MG/GM vaginal cream Insert 0.1 applicators into the vagina as needed 1 Active ezetimibe (ZETIA) 10 MG tablet Take 1 tablet by mouth once daily 2 Active pravastatin (PRAVACHOL) 40 MG tablet Take 40 mg by mouth once daily 2 Active fluocinolone-hy droquinone-tret inoin (Tri-Ainsley) 0.01-4-0.05 % cream Apply to affected area nightly, for 6 months. For cosmetic use 30 g 2 2 Active Active Problems Problem Noted Date Diagnosed [...] Assessment & Plan: Controlled on Restoril Immunizations Immunization Administration Dates Next Due Covid Moderna primary [...] = 0.6 oz pur e alcohol) rarely Comments Unknown Sex and Gender Information Value Date Recorded Sex Assigned at Not on file Legal Sex Female 6:16 AM PARTS COUNTERMAN Gender Identity Not on file Sexual Orientation Not on file Plan of Treatment Health Maintenance Due Date Last Done Comments COLOGUARD (AGES 45-75) - COLON CA SCREENING 1965 CT COLONOGRAPHY - COLON CA SCREENING 1965 FIT - COLON CA SCREENING 1965 FLEX SIG - COLON CA SCREENING 1965 MAMMOGRAM 1965 HIV SCREENING 06/22/1982 HEPATITIS C SCREENING 06/18/1985 HEPATITIS B VACCINE (1 of 3 - 19+ 3-dose series) 06/22/1986 PAP SMEAR 06/22/1988 Cervical Cancer Screening 06/22/1997 PAP with HPV 06/22/1997 PNEUMOCOCCAL VACCINE 50+ (1 of 1 - PCV) 06/22/2017 DEPRESSION SCREENING 02/13/2024 COVID-19 VACCINE (3 - season) 2024 05/04/2020, 04/06/2020 INFLUENZA VACCINE (#1) 2024 , 12/14/2019, 11/14/2019, Additional history exists COLON MONITORING 01/19/2028 01/18/2018 COLONOSCOPY - COLON CA SCREENING 01/19/2028 01/18/2018 [...] on patient's age to complete this topic Insurance [place] [address] Care Teams Lean Manager Relationship Specialty Start Date End Date Mercy Rascon MD [address] [facility] [address] [address] PCP - General 05/13/18
--- OUTSIDE RECORDS SUMMARY | 2024-12-26 07:33 | XMS_ITS | Clinical Summary ---
Author Organization [facility] Address [address] [place] [address] Care Team Providers Care Optical Brightener Maker Helper Name Role Phone Mercy Rascon MD Primary Care Provider [phone] Allergies Active Allergy Reactions Criticality Noted Date Comments Atorvastatin Muscle pain Medium 07/05/2018 myalgia Medications estradiol (ESTRACE) 1 mg tablet Take 1 tablet (1 mg total) by mouth Take 1 tablet by mouth once daily 07/02/2017 Active vitamin A 10,000 unit capsule 1 capsule (10,000 Units total) daily Active biotin 10 mg tablet 1 tablet (10 mg total) daily Biotin 10 MG Tablet, TAKE: 1 tablet, Once a day Active calcium carbonate/vitam in D3 (CALCIUM 500 + D ORAL) Rx: Calcium , TAKE: 1 tab Active estradioL (ESTRACE) 0.01 % (0.1 mg/gram) vaginal cream 02/21/2022 Activ e bimatoprost (LATISSE) 0.03 % ophthalmic solution APPLY TO EACH EYELASH EVERY NIGHT AT BEDTIME 11/07/2023 Active ezetimibe (ZETIA) 10 mg tablet TAKE ONE TABLET BY MOUTH EVERY DAY 90 tablet 1 08/13/2024 Active pravastatin (PRAVACHOL) 40 mg tablet TAKE ONE TABLET BY MOUTH EVERY DAY 90 tablet 1 08/13/2024 Active temazepam (RESTORIL) 15 mg capsuleIndicati ons:Primary insomnia TAKE 1 CAPSULE BY MOUTH TWICE DAILY NEEDED 60 capsule 3 11/10/2024 Active Active Problems Problem Noted Date Diagnosed Date Burn of mouth 11/14/2024 Assessment & Plan (11/14/2024 11:49 AM CDT): Patient with chronic burning sensation in her mouth. She was evaluated by ENT doctor. 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 We made a referral to see a neurologist months ago but she said nobody called her. Will make a referral again. Myalgia 05/16/2024 Assessment & Plan (05/16/2024 12:12 [...] likely it is viral. She will take ivlx-cgd-udzjglr cough medications as needed and she will call for worsening symptoms Onychomycosis 09/29/2021 Assessment & Plan (04/04/2023 7:52 AM BAKERY TEAM MEMBER): Resolved Assessment & Plan (04/03/2022 12:41 PM BAKERY TEAM MEMBER): Resolved Assessment & Plan (09/29/2021 5:07 PM CDT): Patient with fungus infection of both great toenails. She will be started on Lamisil 250 mg daily for 4-6 months. Mixed hyperlipidemia 05/25/2015 Assessment & Plan (11/14/2024 11:50 AM CDT): LDL is 125. Continue pravastatin and Zetia. Insurance company refused to cover Nexletol Assessment & Plan (05/16/2024 12:11 PM CDT): [...] . Assessment & Plan (04/04/2023 7:52 AM BAKERY TEAM MEMBER): Controlled on current medications. Continue low-fat diet. Will continue to monitor . Assessment & Plan (10/02/2022 12:13 PM CDT): Controlled on current medications. Continue low-fat diet. Will continue to monitor . Assessment & Plan (04/03/2022 7:52 AM BAKERY TEAM MEMBER): Controlled on current medications. Continue low-fat diet. Will continue to monitor . Assessment & Plan (09/29/2021 5:06 PM CDT): Controlled on current medications. Continue low-fat diet. Will continue to monitor . Assessment & Plan (02/18/2021 11:44 AM BAKERY TEAM MEMBER): Continue current medications and she was advised [...] months. Assessment & Plan (01/29/2020 4:31 PM BAKERY TEAM MEMBER): Patient has myalgia with low does Crestor. [...] months Assessment & Plan (01/08/2019 11:46 AM BAKERY TEAM MEMBER): Controlled on current medications. Continue low-fat diet. Will continue to monitor . Assessment & Plan (07/05/2018 10:28 AM CDT): Controlled on current medications. Continue low-fat diet. Will continue to monitor . Primary insomnia 05/25/2015 Assessment & Plan (11/14/2024 7:33 AM CDT): Controlled on temazepam Assessment & Plan (05/16/2024 12:11 PM CDT): Controlled on temazepam Assessment & Plan (11/16/2023 7:50 AM CDT): Controlled on temazepam Assessment & Plan (04/04/2023 7:52 AM BAKERY TEAM MEMBER): Controlled on temazepam Assessment & Plan (10/02/2022 12:14 PM CDT): Controlled on temazepam Assessment & Plan (04/03/2022 7:52 AM BAKERY TEAM MEMBER): Controlled on temazepam Assessment & Plan (09/29/2021 5:06 PM CDT): Controlled on temazepam Assessment & Plan (02/18/2021 11:44 AM BAKERY TEAM MEMBER): Controlled on temazepam Assessment & Plan (08/05/2020 11:52 AM CDT): Controlled on temazepam Assessment & Plan (01/29/2020 2:41 PM BAKERY TEAM MEMBER): Controlled on Restoril Assessment & Plan (07/30/2019 4:04 PM CDT): Controlled on temazepam Assessment & Plan (01/08/2019 11:46 AM BAKERY TEAM MEMBER): Controlled on temazepam p.r.n. Assessment & Plan (07/05/2018 10:29 AM CDT): Controlled on Restoril Encounters Date Type Department Care Team Description 11/14/2024 11:15 AM CDT Office Visit [facility] Internal Medicine [address] [place] [phone] Mercy Rascon MD Mixed hyperlipidemia (Primary Dx); Primary insomnia; Body mass index (BMI) 19.9 or less, adult; Burn of mouth, initial encounter from Last 3 Months Immunizations Immunization Administration Dates Next Due Influenza, Quadrivalent, Mira l Culture-based MDCK, Preservative Free, Antibiotic Free, Intramuscular 11/03/2022,11/19/2021,11/14/2019 Influenza, Quadrivalent, Spl it, Intramuscular 11/23/2017,12/01/2016,11/29/2015 Influenza, Quadrivalent, Spl it, Preservative Free, Intramuscular 01/08/2019 Influenza, Trivalent, Cell C ulture-based MDCK, Preservative Free, Antibiotic Free, Intramuscular 10/31/2024,11/03/2023 Influenza, Trivalent, Preser vative Free, Intramuscular 11/26/2014 [...] Tobacco: Never Alcohol Use Standard Drinks/Week Comments Not Currently 0 (1 standard drink = 0.6 oz pur e alcohol) PHQ-2 Answer Date Recorded PHQ-2 Total Score (If total score is 3 or more points, staff should administer the PHQ-9) 0 11/14/2024 AUDIT-C Answer Date Recorded Q1: How often do you have a drink containing alcohol? Never 11/14/2024 Q2: How many drinks containi ng alcohol do you have on a typical day when you are drinking? Patient does not drink Q3: How often do you have si x or more drinks on one occasion? Never 11/14/2024 Comments Unknown Sex and Gender Information Value Date Recorded Sex Assigned at Not on file Legal Sex Female 5:50 PM BAKERY TEAM MEMBER Gender Identity Not on file Sexual Orientation Not on file Last Filed Vital Signs Vital Sign Reading Time Taken Comments Blood Pressure 122/76 11/14/2024 11:32 AM CDT Pulse 80 11/14/2024 11:32 AM CDT Temperature 36.6 C (97.8 F) 11/14/2024 11:32 AM CDT Respiratory Rate 16 11/14/2024 11:32 AM CDT Oxygen Saturation 100% 11/14/2024 11:32 AM CDT Inhaled Oxygen Concentration - - Weight 55.9 kg (123 lb 4.8 oz) 11/14/2024 11:32 AM CDT Height 167.6 cm (5' 6) 11/14/2024 11:32 AM CDT Body Mass Index 19.9 11/14/2024 11:32 AM CDT Plan of Treatment Health Maintenance Due Date Last Done Comments Hepatitis B Screening 06/22/1985 Regular Well Visit/Exam 18-64 06/22/1985 Cervical Cancer Screening 04/07/2020 04/07/2019 Breast Cancer Screening-Mammogram 06/20/2022 06/20/2021, 06/12/2020, 02/12/2018, Additional history exists Covid-19 Vaccine ( season) 2024 11/03/2023, 11/03/2022, 11/19/2021, Additional history exists Depression Screening 11/14/2025 11/14/2024, 11/16/2023, 04/04/2023, Additional history exists Colon Cancer Screening-Colonoscopy 01/19/2028 01/18/2018 DTaP/Tdap/Td Vaccine (2 - Td or Tdap) 01/08/2029 01/08/2019 Colon Cancer Screening-CT Colonography Discontinued 01/18/2018 Colon Cancer Screening-DNA Stool Discontinued 01/18/2018 Colon Cancer Screening-FIT Discontinued 01/18/2018 Colon Cancer Screening-Sigmoidoscopy Discontinued 01/18/2018 Zoster Vaccine Completed 01/23/2020, 11/14/2019 Hepatitis C Screening Completed 05/09/2024 Influenza Vaccine Completed 10/31/2024, , 11/03/2022, Additional history exists Pneumococcal vaccine <65 Aged Out No longer eligible based on patient's age to complete this topic Procedures Procedure Name Priority Date/Time Associated Diagnosis Comments COMPREHENSIVE METABOLIC PANEL Routine 10/31/2024 8:53 AM CDT Mixed hyperlipidemia LIPID PANEL Routine 10/31/2024 8:53 AM CDT Mixed hyperlipidemia HEPATITIS C ANTIBODY Routine 05/09/2024 9:10 AM CDT SCREENING MAMMOGRAM Schedule Routine, Read Routine (OP Routine) 06/20/2021 GENITAL FLUID PAP SMEAR, THIN PREP AND HPV Routine 04/07/2019 COLONOSCOPY Routine 01/18/2018 from Last 3 Months or Most Recently Relevant to Health Maintenance Results * (ABNORMAL) Lipid panel (10/31/2024 8:53 AM CDT) Cholesterol 225(H) <200 mg/dL [facility] HDL 78 > OR = 50 mg/dL [facility] Triglycerides 112 <150 mg/dL [facility] LDL 125(H) mg/dL (calc) [facility] Comment: Reference range: <100 Desirable range <100 mg/dL for primary prevention; <70 mg/dL for patients with CHD or diabetic patients with > or = 2 CHD risk factors. LDL-C is now calculated using the Cal calculation, which is a validated novel method providing better accuracy than the Friedewald equation in the estimation of LDL-C. Antione ELLIOTT et al. PAULA. 2013;310(19): 3035-6342 (http://education.Techstars/faq/GTR483) Chol/HDL ratio 2.9 <5.0 (calc) [facility] Non-HDL, (LDL+VLDL) 147(H) <130 mg/dL (calc) [facility] Comment: For patients with diabetes plus 1 major ASCVD risk factor, treating to a non-HDL-C goal of <100 mg/dL (LDL-C of <70 mg/dL) is considered a therapeutic option. Blood 10/31/2024 8:53 AM CDT 10/31/2024 8:53 AM CDT Narrative [facility] - 11/01/2024 1:35 AM CDT FASTING:YES FASTING: YES us Mercy Rascon MD LAB BLOOD ORDERABLES Final Result [facility] [address] [address] [facility] [place] [address] * Comprehensive metabolic panel (10/31/2024 8:53 AM CDT) [facility] Glucose 91 65 - 99 mg/dL [facility] Comment: Fasting reference interval BUN 18 7 - 25 mg/dL [facility] Creatinine 0.75 0.50 - 1.03 mg/dL [facility] eGFR 93 > OR = 60 mL/min/1.7 3m2 [facility] BUN/creat ratio SEE NOTE: 6 - 22 (calc) [facility] Comment: Not Reported: BUN and Creatinine are within reference range. Sodium 139 135 - 146 mmol/L [facility] Potassium, pl 4.5 3.5 - 5.3 mmol/L [facility] Chloride 103 98 - 110 mmol/L [facility] CO2 30 20 - 32 mmol/L [facility] Calcium 9.6 8.6 - 10.4 mg/dL [facility] Protein, sr 7.2 6.1 - 8.1 g/dL [facility] Albumin 4.6 3.6 - 5.1 g/dL [facility] GLOBULIN 2.6 1.9 - 3.7 g/dL (calc) [facility] Alb/glob ratio 1.8 1.0 - 2.5 (calc) [facility] Bilirubin, total 0.5 0.2 - 1.2 mg/dL [facility] Alk phos 59 37 - 153 U/L [facility] AST 20 10 - 35 U/L [facility] ALT (SGPT) 13 6 - 29 U/L [facility] Blood 10/31/2024 8:53 AM CDT 10/31/2024 8:53 AM CDT Narrative [facility] - 11/01/2024 1:35 AM CDT FASTING:YES FASTING: YES Mercy Rascon MD LAB BLOOD ORDERABLES Final Result Performing Organization Address [facility] de Phone Number [facility] [address] [place] [address] * Hepatitis C antibody (05/09/2024 9:10 AM CDT) Hep C Ab NON-REACTI VE NON-REACT VERONIKA [facility] Comment: HCV antibody was non-reactive. There is no laboratory evidence of HCV infection. In most cases, no further action is required. However, if recent HCV exposure is suspected, a test for HCV RNA (test code 74640) is suggested. For additional information please refer to http://education.LawPivot/faq/RBK32k8 (This link is being provided for informational/ educational purposes only.) 05/09/2024 9:10 AM CDT 05/09/2024 9:11 AM CDT Narrative [facility] - 05/10/2024 5:41 AM CDT FASTING:YES FASTING: YES Mercy Rascon MD LAB MICROBIOLOGY - GENERAL ORDERABLES Final Result Performing Organization Address [facility] de Phone Number [facility] [address] [place] [address] * Screening Mammogram (06/20/2021) Anatomical Region Laterality [...] Recently Relevant to Health [place] [address] [facility] [employer] CHOICE Care Teams Optical Brightener Maker Helper Relationship Specialty Start Date End Date Mercy Rascon MD [address] [place] [address] PCP - General Internal Medicine 05/04/18
--- OUTSIDE RECORDS SUMMARY | 2024-12-26 07:33 | XMS_ITS | Encounter Summary ---
Author Organization [facility] Facility Care Team Providers Care Client Relationship Executive Name Role Phone Mercy Rascon MD Primary Care Provider [phone] Encounter Details Date Type Department Care Team (Latest Contact Info) Description 01/22/2018 Orders Only [facility] CLINCONV Provider, MD Malou [address] [place] [address] Social History Tobacco Use Types Packs/Day Years Used Date Smoking Tobacco: Never Assessed Comments Unknown Sex and Gender Information Value Date Recorded Sex Assigned at Not on file Legal Sex Female 5:50 PM MANAGING BROKER Gender Identity Not on file Sexual Orientation Not on file documented as of this encounter Plan of Treatment Not on file documented as of this encounter Procedures Procedure Name Priority Date/Time Associated Diagnosis Comments COLONOSCOPY - SCAN 01/22/2018 12 :00 AM MANAGING BROKER documented in this encounter Results * COLONOSCOPY - SCAN (01/22/2018 12:00 AM MANAGING BROKER) Narrative 01/22/2018 12:00 AM MANAGING BROKER Ordered by an unspecified provider. Historical Provider Final Res ult documented in this encounter Visit Diagnoses Not on filedocumented in this encounter Additional Health Concerns Infection Onset Date Last Indicated Resolved Time COVID: Suspected 02/17/2020 02/17/2020 03/02/2020 3:07 AM MANAGING BROKER documented as of this encounter Care Teams Client Relationship Executive Relationship Specialty Start Date End Date Mercy Rascon MD [address] [place] [address] PCP - General Internal Medicine 05/04/18 documented as of this encounter
--- OUTSIDE RECORDS SUMMARY | 2024-12-26 07:34 | XMS_ITS | Encounter Summary ---
Author Organization 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 Historical Provider Final Res ult * SCAN - PATHOLOGY (12/26/2016 12:00 AM CATALYST OPERATOR CHIEF) Narrative 12/26/2016 12:00 AM CATALYST OPERATOR CHIEF Ordered by an unspecified provider. Historical Provider Final Res ult documented in this encounter Visit Diagnoses Not on filedocumented in this encounter Additional Health Concerns Infection Onset Date Last Indicated Resolved Time COVID: Suspected 02/17/2020 02/17/2020 03/02/2020 3:07 AM CATALYST OPERATOR CHIEF documented as of this encounter Care Teams Big Data Platform Architect Relationship Specialty Start Date End Date Mercy Rascon MD [address] [place] [address] [place] [id number] PCP - General Internal Medicine 05/04/18 documented as of this encounter
--- OUTSIDE RECORDS SUMMARY | 2024-12-26 07:34 | XMS_ITS | Encounter Summary ---
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
--- OUTSIDE RECORDS SUMMARY | 2024-12-26 07:34 | XMS_ITS | Patient Health Record ---
Author Organization [facility] Address [address] [address] Care Team Providers Care Medical Voucher Clerk Name Role Phone Jose De Jesus Matson Primary Care Provider [phone] Reason For Referral No Information Medications Medication SIG (Take, Route, Frequency, Duration) Notes Start Date End Date Status Estradiol 1MG PO DAILY [facility]- Activ e Vitamin D-3 2000UNIT PO DAILY [facility] Active Atorvastatin Calcium 10MG OR qhs [facility] Active Ecotrin Low Strength 81MG PO DAILY [facility] Active Flonase 2SPRAY EACH NARE daily prn [facility] Active Temazepam 1 - 2CAP PO qhs prn [facility] Active ZyrTEC Allergy 10MG PO daily prn [facility] Active GNP Vitamin A 8000UNIT PO DAILY [facility] Active Tums 2TAB PO DAILY [facility]- Active Multivitamins 1TAB PO DAILY [facility] Active B6 Natural 100MG OR DAILY Ac tive Immunizations Vaccine Route Administration Date Status Comme nts Influenza (split), 3 yrs and above Unknown 12/31/2012 P ending Inactivated Influenza (split), 3 yrs and above Unknown 12/30/2013 P ending Inactivated Problems Problem Type SNOMED Code ICD Code Onset Dates Problem Status W/U Status Risk Notes Problem 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 Problem Anemia (704535335) Unspecified anemia (285.9) Active confirmed Problem Allergic rhinitis (59617619) Allergic rhinitis, cause unspecified (477.9) Active confirmed Problem Acute sinusitis (75583293) Acute sinusitis, unspecified (461.9) Active confirmed Problem Acute upper respiratory infection (96108612) Acute upper respiratory infections of unspecified site (465.9) Active confirmed Problem Menopausal symptom (65159948) Symptomatic menopausal or female climacteric states (627.2) Active confirmed Problem Insomnia (713202857) Insomnia, unspecified (780.52) Active confirmed Problem Requires influenza virus vaccination (178100606) Need for prophylactic vaccination and inoculation, Influenza (V04.81) Active confirmed Problem FH: Diabetes mellitus (409373778) Family history of diabetes mellitus (V18.0) Active confirmed Plan Of Treatment No Information Insurance Providers Payer Name Payer Address Payer Phone Subscriber Number Group Number Insured Name Patient Relationship to Insured Coverage Start Date Coverage End Date [facility] [address] [place], [place] [id number] DIMAS ANDRADE Self - patient is the insured Medical (General) History Surgical History Surgery Date(Month/Year) Hysterectomy [id number] ;
== END 2024-12-26 07:31 | disposition home or self-care (01) ==
LOC: ANHFOHIMG 07:32
PROVIDERS: PCP Internal Medicine; Visit Provider Obstetrics & Gynecology
DX: Z12.31 Encounter for screening mammogram for malignant neoplasm of breast (principal)
CPT/HCPCS: 77063; 77067